=== PATIENT | female | born 1970 ===

== ENCOUNTER 2024-11-02 06:21 | Day surgery (SDC) | payer OTHER, SELFPAY | END 2024-11-02 16:17 | disposition home or self-care (01) | LOC: GI 06:21 | PROVIDERS: ATTENDING PHYSICIAN Internal Medicine Gastroenterology | DX: Z12.11 Encounter for screening for malignant neoplasm of colon (principal); R19.7 Diarrhea, unspecified; D12.2 Benign neoplasm of ascending colon; K62.1 Rectal polyp; Z86.0100 Personal history of colon polyps, unspecified | CPT/HCPCS: 45385; 45380; 88305 ==